=== PATIENT | female | born 1955 | race African-American/Black ===

== ENCOUNTER 2017-06-21 18:47 | Emergency (ER) | payer OTHER ==
[~2017-06-21] VITALS: Ht 152.4 cm; Wt 104.3 kg
--- NOTE | ~2017-06-21 | CT4 ---
[facility] A Service of [facility] & [facility] RADIOLOGY TEXT RESULTS PATIENT: CRISTIAN SAWYER LOCATION: [facility] : 55 UNIT #: [id number] AGE: [address]: Hernesto Parkinson DO SEX: F ORDER DR: [id number] [facility] [address] [place], [place] [address] [id number] E MR#: [id number] Acc #: [id number] NAME: CRISTIAN SAWYER : 1955 SEX: F STUDY DATE/TIME: 06/21/2017 21:13 UNIT: [facility] ROOM: STUDY DESCRIPTION: CT Abd and Pelv Wo Cont Attending Physician: Hernesto Parkinson D.O. Ordering Physician: Hernesto Parkinson D.O. Primary Care Physician: Primary Care Physician No MEDICAL IMAGING REPORT This report is preliminary unless electronic signature is present EXAM CT of the abdomen and pelvis without contrast dated 06/21/2017 COMPARISON None. HISTORY Lower abdominal pain for a week. FINDINGS CT of the abdomen and pelvis were obtained without IV or oral contrast in the axial plane followed by sagittal and coronal reformats. This CT examination was performed with one or more of the following radiation dose reduction techniques: automatic exposure control, adjustment of mA and/or kV according to patient size, and iterative reconstruction. LOWER CHEST: There appears to be minimal pleural thickening/atelectasis along the inferior aspect of the right oblique fissure. Heart is of normal size. There is minimal pericardial fluid/thickening seen. There is probably a small hiatal hernia. Degenerative changes are noted in the thoracolumbar spine. ABDOMEN: There are surgical paulo noted along the right paramidline aspect of the upper abdomen in the region of the right adrenal gland. Correlate with prior history. Left adrenal gland appears to be of normal size. There are calcifications noted near the course of the mid to distal left ureter, anterior to the left psoas muscle. It is probably vascular calcification. Similar calcification is also noted along the posterolateral aspect of the urinary bladder, likely phlebolith rather than ureteral stones given the lack of any corresponding hydroureter. No renal or ureteral stones. No hydronephrosis or hydroureters. There are 2 right and 1 left exophytic lesions arising from the kidneys. The lesions in the mid and inferior STS. [facility] A Service of [facility] RADIOLOGY TEXT RESULTS PATIENT: CRISTIAN SAWYER LOCATION: [facility] : 55 UNIT #: [id number] AGE: [address]: Hernesto Parkinson DO SEX: F ORDER DR: aspect of the right kidney have a Hounsfield unit of a cyst while the lesion in the superior pole of the left kidney appears to be more hyperdense with a Hounsfield unit of 26. Another hyperdense lesion in the lateral aspect of the mid left kidney cannot be excluded. Postoperative changes are noted in the region of the right adrenal gland without a well-defined gland. Pancreas, spleen are unremarkable. There are multiple diverticula throughout the colon without evidence of acute diverticulitis. Appendix is within normal limits. There is a defect in the right anterolateral abdominal wall with a neck of 2.4 cm. Hernia sac has a maximum height of 2.6 cm and it contains only fat and is noted immediately superficial to the liver. No free fluid, free air or significant lymphadenopathy is seen. Degenerative disc and facet changes are noted at multiple levels of the thoracolumbar spine. PELVIS: There is diverticulosis scattered throughout the colon without evidence of acute diverticulitis. There is an oval structure noted in the left paramidline aspect of the pelvic floor measuring 3.6 x 2.5 cm. It contains a Hounsfield unit of 45. No bladder stones or bowel abnormality. Age appropriate atrophied uterus is present. IMPRESSION 1. No acute abnormality. 2. There is mild pericardial fluid/thickening along the right anterolateral aspect of the inferior portion of the heart. 3. Diverticulosis scattered throughout the colon without evidence of acute diverticulitis. 4. Postoperative changes are noted in the region of the right adrenal gland without a well-defined gland. Correlate with history of surgery. 5. There are bilateral multiple renal lesions, incompletely characterized in the current study. Relatively largest 1 is in the superior left kidney measuring 2.2 x 1.9 cm with a Hounsfield unit of 26. Some of these lesions have fluid signal favoring cysts like in the right kidney. The lesions in the left kidney appear to be dense which could represent proteinaceous or hemorrhagic cysts however solid lesions cannot be excluded. There are no prior studies to ensure stability. Renal mass protocol CT or ultrasound can be obtained on an elective basis. 6. No renal or ureteral stones. No hydronephrosis or hydroureters. There are calcifications noted near the course of the mid to distal left ureter, anterior to the left psoas muscle. It is probably vascular calcification. Similar calcification is also noted along the posterolateral aspect of the urinary bladder, likely phlebolith rather than ureteral stones given the lack of any corresponding hydroureter. 7. There is a fatty hernia in the right anterolateral abdominal wall with a neck of 2.6 cm and a maximum height of 2.4 cm. 8. 3.6 x 2.5 cm oval lesion is noted in the left paramidline aspect of the pelvic floor with a Hounsfield unit of 45. It could represent a complex cystic lesion or even rectocele or cystocele in the appropriate clinical setting. Lack of IV and oral contrast limits evaluation. 9. Degenerative changes at multiple levels of the spine. [facility] A Service of [facility] RADIOLOGY TEXT RESULTS PATIENT: CRISTIAN SAWY[id number] 55 UNIT #: [id number] AGE: [address]: Hernesto Parkinson DO SEX: F ORDER DR: Dictated by... Dorinda Hernandez M.D. THIS IS AN ELECTRONICALLY VERIFIED REPORT Dorinda Hernandez M.D. at 06/28/2017 3:10 PM CPR/mjs TD: 06/22/2017 09:58 JOB #: [id number] MEDICAL IMAGING REPORT Page 1 of 1 COPY
--- NOTE | ~2017-06-21 | US85 ---
[facility] A Service of [facility] RADIOLOGY TEXT RESULTS PATIENT: CRISTIAN SAWYER LOCATION: [facility] : 55 UNIT #: [id number] AGE: [address]: Hernesto Parkinson DO SEX: F ORDER DR: [id number] [facility] [address] [place], [place] [address] [id number] E MR#: [id number] Acc #: [id number] NAME: CRISTIAN SAWYER : 1955 SEX: F STUDY DATE/TIME: 06/21/2017 21:39 UNIT: [facility] ROOM: STUDY DESCRIPTION: [employer] Attending Physician: Hernesto Parkinson D.O. Ordering Physician: Hernesto Parkinson D.O. Primary Care Physician: Primary Care Physician No MEDICAL IMAGING REPORT This report is preliminary unless electronic signature is present EXAM Left lower extremity DVT study, 06/21/2017 COMPARISON None HISTORY Left lower extremity pain with pulling sensation in the left groin and thigh for 10 days. TECHNIQUE Structural rand-scale analysis, Doppler flow analysis and waveform analysis with compression and augmentation of the left lower extremity deep veins were performed as per the protocol. Venous ultrasound examination of the left lower extremity was performed using grayscale, spectral Doppler and color flow Doppler imaging. FINDINGS The examination is negative. There is no evidence of left lower extremity deep venous thrombus from the groin to the lower calf. Visualized greater saphenous vein is also patent. IMPRESSION Negative examination. No evidence of left lower extremity deep venous thrombosis. Dictated by... Dorinda Hernandez M.D. [facility] A Service of [facility] RADIOLOGY TEXT RESULTS PATIENT: CRISTIAN SAWYER LOCATION: [facility] : 55 UNIT #: [id number] AGE: [address]: Hernesto Parkinson DO SEX: F ORDER DR: THIS IS AN ELECTRONICALLY VERIFIED REPORT Dorinda Hernandez M.D. at 06/22/2017 7:09 PM SUMEET/ena TD: 06/22/2017 11:09 JOB #: [id number] MEDICAL IMAGING REPORT Page 1 of 1 COPY
[~2017-06-21 18:47] MED LIST: ASPIRIN81 M2 PO; LOSARTAN POTASS50 MG PO; METFORMIN HCL500 M3 PO; PRAVACHOL20 MG PO; VITAMIN D2000 UNIT PO
[2017-06-21 19:18] LABS: BASOPHIL# 0.1 X10e3 (0-0.3); BASOPHIL% 0.7 % (0-2.5); EOSINOPHIL# 1.1 X10e3 (0-0.7); EOSINOPHIL% 8.4 % (0.0-7.0); HEMATOCRIT 31.3 % (35.0-45.0); HEMOGLOBIN 10.3 gm/dL (12.0-16.0); LYMPHOCYTE% 32.2 % (17.0-45.0); MEAN CELL VOLUME 80.8 FL (83-96); MEAN CORPUSCULAR HEMOGLOBIN 26.5 PG (28-34); MEAN CORPUSCULAR HGB CONC 32.7 g/dL (30-36); MEAN PLATELET VOLUME 7.6 FL (6.5-11.5); MONOCYTE# 0.8 X10e3 (0-1.0); NEUTROPHIL# 6.6 X10e3 (1.5-7.1); NEUTROPHIL% 52.7 % (40-75); PLATELET COUNT 378 X10e3 (140-420); RED BLOOD COUNT 3.88 X10e (3.90-5.30); RED CELL DISTRIBUTION WIDTH 15.1 % (11.0-15.5); WHITE BLOOD COUNT 12.5 X10e3 (4.0-10.5)
[2017-06-21 19:19] LABS: DIFF IND NO
[2017-06-21 19:46] LABS: BILIRUBIN, DIRECT 0.1 mg/dL (0.0-0.2); BILIRUBIN,INDIRECT 0.5 mg/dL (0.0-0.9); BILIRUBIN,TOTAL 0.6 mg/dL (0.2-2.0); BUN/CREATININE RATIO 13.63; CALCIUM SERUM 9.5 mg/dL (8.4-10.2); CREATININE SERUM 1.1 mg/dL (0.6-1.4); GLOM FILT RATE Estimated 54.2 mL/min (>60); PROTEIN TOTAL SERUM 7.5 g/dL (6.0-8.3)
[2017-06-21 20:45] LABS: URINE SOURCE CLEAN CATCH
[2017-06-21 20:49] LABS: URINE APPEARANCE CLEAR; URINE BILIRUBIN NEG (NEG); URINE BLOOD NEG (NEG); URINE COLOR YELLOW; URINE GLUCOSE NEG (NEG); URINE KETONE NEG (NEG); URINE LEUKOCYTE ESTERASE 1+ (NEG); URINE NITRATE NEG (NEG); URINE PROTEIN NEG (NEG); URINE SPECIFIC GRAVITY 1.011 (1.003-1.035); URINE UROBILINOGEN 0.2 MG/DL (NEG)
[2017-06-21 20:51] LABS: CULTURE INDICATED? YES; U HYALINE CASTS AUWI 0-2 /[LPF]; URBCS1 AUWI 0-2 /[HPF] (0-2); URINE BACTERIA AUWI NEG (NEGATIVE); URINE SQUAMOUS EPITHELIAL CELL NONE SEEN /[HPF]
== END 2017-06-22 00:05 | disposition home or self-care (01) ==
LOC: CED 18:47
PROVIDERS: Emergency Medicine
DX: S39.011A Strain of muscle, fascia and tendon of abdomen, initial encounter (principal); E11.9 Type 2 diabetes mellitus without complications; E78.5 Hyperlipidemia, unspecified; I10 Essential (primary) hypertension; Z88.1 Allergy status to other antibiotic agents; Z91.013 Allergy to seafood; X50.0XXA Overexertion from strenuous movement or load, initial encounter; Y92.9 Unspecified place or not applicable
CPT/HCPCS: 36415; 74176; 80048; 80076; 81003; 82150; 83690; 85025; 87086; 93971; 99284